=== PATIENT | male | born 1965 | race Caucasian/White ===

== ENCOUNTER 2021-04-18 22:33 | Emergency (ER) | payer OTHER ==
[~2021-04-18] VITALS: Ht 188 cm; Wt 107.0 kg
[2021-04-18 23:11] LABS: INFLUENZA A ANTIGEN Negative (Negative); INFLUENZA B ANTIGEN Negative (Negative)
[2021-04-18] MEDS ORDERED: TESSALON PERLE100 MG PO (23:24)
[2021-04-18] MEDS ORDERED: FLEXERIL PO (23:24)
[2021-04-18] MEDS ORDERED: PROAIR HFA8.5 GM INH (23:24)
[2021-04-18 23:33] VITALS: BP 114/84
--- NOTE | 2021-04-19 10:23 | EKG ---
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[place] : 1965 Requested By: Braulio Ruiz Order Number: [id number] MD: Javier Mckeon Measurements Intervals [place] Rate: 91 P: 42 TN: 182 QRS: 80 QRSD: 93 T: 32 QT: 362 QTc: 446 Interpretive Statements Sinus rhythm Baseline wander in lead(s) V3 No previous ECG available for comparison Electronically Signed On 04-19-2021 10:23:43 [employer]CIAL [employer] by Javier Mckeon [email or web address] <ELECTRONICALLY SIGNED> By: Javier Mckeon MD, [facility] 04/19/21 1023 37 37 Javier Mckeon MD, [facility] /EPI
== END 2021-04-18 23:33 | disposition home or self-care (01) ==
LOC: M.ERS 22:33
PROVIDERS: Emergency Medicine
DX: U07.1 COVID-19 (principal)

== ENCOUNTER 2021-04-23 14:35 | Emergency (ER) | payer OTHER ==
[~2021-04-23] VITALS: Ht 188 cm; Wt 104.3 kg
[~2021-04-23 14:35] MED LIST: FLEXERIL PO; PROAIR HFA8.5 GM INH; TESSALON PERLE100 MG PO
[2021-04-23 16:08] VITALS: BP 145/70
== END 2021-04-23 16:09 | disposition left against medical advice (07) ==
LOC: M.ERS 14:35
DX: R06.02 Shortness of breath (principal); Z53.21 Procedure and treatment not carried out due to patient leaving prior to being seen by health care provider